=== PATIENT | female | born 1955 | race Caucasian/White ===

== ENCOUNTER 2021-08-13 09:33 | Outpatient (CLI) | payer MEDICARE | END 2021-08-13 09:34 | disposition home or self-care (01) | LOC: BICMAMMO 09:33 | PROVIDERS: ATTEND Internal Medicine | DX: M81.0 Age-related osteoporosis without current pathological fracture (principal); M85.851 Other specified disorders of bone density and structure, right thigh; M85.852 Other specified disorders of bone density and structure, left thigh | CPT/HCPCS: 77080 ==

== ENCOUNTER 2021-09-18 09:58 | Inpatient (IN) | payer MEDICARE, SELFPAY ==
[2021-09-18] MEDS ORDERED: Ondansetron PF 4 MG/2 ML Vial IVP PRN (12:55)
[2021-09-18] MEDS ORDERED: HumaLOG 300 UNITS/3 ML VIAL SC PRN ×2 (12:55)
[2021-09-18] MEDS ORDERED: Dextrose 50% Abboject 50 ML SYRINGE SLOW IVP PRN (12:55)
[2021-09-18] MEDS ORDERED: Dextrose 5% in Water 1,000 ML IV PRN (12:55)
[2021-09-18] MEDS ORDERED: Nitroglycerin 0.4 MG TAB (25 Tab Bottle) SL PRN (12:59)
[2021-09-18 13:16] VITALS: BMI 31.0
[2021-09-18 13:41] LABS: #Eosinphils 0.2 thou/uL (0.0-0.7); #Lymphocytes 2.7 thou/uL (1.20-3.40); #Monocytes 0.7 thou/uL (0.11-0.59); #Neutrophils 4.6 thou/uL (1.40-6.50); %Basophils 0.6 % (0.0-1.0); %Lymphocytes 33.3 % (21.0-51.0); %Monocytes 8.7 % (0.0-10.0); %Neutrophils 55.4 % (42.0-75.0); Hemoglobin 9.3 g/dL (12.0-16.0); Mean Corpuscular HGB CONC 33.3 g/dL (32.0-36.0); Mean Corpuscular Hemoglobin 28.7 pg (27.0-31.0); Mean Platelet Volume 7.5 fL (7.4-10.4); Platelet Count 323 thou/uL (130-400); RBC Distribution Width 14.9 % (11.5-14.5); Red Blood Cell (RBC) Count 3.24 mill/uL (4.20-5.40); White Blood Cell (WBC) Count 8.2 thou/uL (4.8-10.8)
[2021-09-18 14:02] LABS: Anion Gap 13 mmol/L (10-20); BUN (Urea Nitrogen) 24 mg/dL (9.8-20.1); Calc. Creatinine Clearance 40 mL/min (70-130); Calcium 9.4 mg/dL (7.8-10.44); Carbon Dioxide 26 mmol/L (23-31); Chloride 104 mmol/L (98-107); Glucose 134 mg/dL (80-115); Potassium 4.9 mmol/L (3.5-5.1); Sodium 138 mmol/L (136-145)
[2021-09-18] MEDS: Sodium Chloride 0.9% 1,000 ML IV SCH (15:18)
[2021-09-18] MEDS ORDERED: Communication Order-Pharmacy FS SCH (17:30)
[2021-09-18] MEDS: Lantus 1000 UNITS/10 ML VIAL SC SCH (21:03)
[2021-09-18] MEDS: Aspirin 81 mg Enteric Coated Tablet PO SCH (21:03)
[2021-09-18] MEDS: Gabapentin 400 MG CAP PO SCH (21:03)
[2021-09-18] MEDS: Pramipexole Di-HCl 1 MG TAB PO SCH (21:04)
[2021-09-18] MEDS: Acetaminophen 325 MG TAB PO PRN (21:05)
[2021-09-19] MEDS: Sodium Chloride 0.9% 1,000 ML IV SCH ×3 (00:16→20:20)
[2021-09-19 01:56] LABS: SARS-CoV-2 PCR by NAA Not Detected (NotDetected)
[2021-09-19 05:21] LABS: Anion Gap 14 mmol/L (10-20); BUN (Urea Nitrogen) 22 mg/dL (9.8-20.1); Calc. Creatinine Clearance 39 mL/min (70-130); Calcium 9.8 mg/dL (7.8-10.44); Carbon Dioxide 26 mmol/L (23-31); Chloride 103 mmol/L (98-107); Glucose 143 mg/dL (80-115); Potassium 4.9 mmol/L (3.5-5.1); Sodium 138 mmol/L (136-145)
[2021-09-19] MEDS: Gabapentin 400 MG CAP PO SCH ×2 (06:01→20:17)
[2021-09-19] MEDS: Aripiprazole 10 MG TAB PO SCH (06:01)
[2021-09-19] MEDS: Levothyroxine Sodium 125 MCG TAB PO SCH (06:01)
[2021-09-19] MEDS: Calcitriol 0.25 MCG CAP PO SCH (06:01)
[2021-09-19] MEDS ORDERED: ALPRAZolam 0.5 MG TAB PO SCH (06:15)
[2021-09-19] MEDS ORDERED: Lidocaine 1% (PF) 30 ML VIAL ONE (08:20)
[2021-09-19] MEDS ORDERED: Midazolam HCl 2 mg/2 ml Vial ONE (08:55)
[2021-09-19] MEDS ORDERED: Fentanyl 100 MCG/2 ML VIAL ONE (08:55)
[2021-09-19] MEDS ORDERED: Metoprolol Tartrate 25 MG TAB PO SCH (09:00)
[2021-09-19] MEDS ORDERED: Iopamidol 370 76% 100 ML VIAL ONE (09:18)
[2021-09-19] MEDS: Icosapent Ethyl 1 GM CAPSULE PO SCH ×2 (11:16→17:04)
[2021-09-19] MEDS ORDERED: ALPRAZolam 0.25 MG TAB PO PRN (11:26)
[2021-09-19] MEDS: Acetaminophen 325 MG TAB PO PRN ×3 (11:36→22:32)
[2021-09-19] MEDS: Pramipexole Di-HCl 1 MG TAB PO SCH (20:17)
[2021-09-19] MEDS: Aspirin 81 mg Enteric Coated Tablet PO SCH (20:18)
[2021-09-19] MEDS: Metoprolol Tartrate 25 MG TAB PO SCH (20:18)
[2021-09-19] MEDS: Lantus 1000 UNITS/10 ML VIAL SC SCH (20:54)
[2021-09-19] MEDS ORDERED: Acetaminophen 325 MG TAB PO SCH (22:15)
[2021-09-20] MEDS: Sodium Chloride 0.9% 1,000 ML IV SCH (04:28)
[2021-09-20] MEDS: Acetaminophen 325 MG TAB PO PRN (04:29)
[2021-09-20] MEDS: Levothyroxine Sodium 125 MCG TAB PO SCH (04:30)
[2021-09-20 05:15] LABS: #Eosinphils 0.1 thou/uL (0.0-0.7); #Monocytes 0.4 thou/uL (0.11-0.59); %Basophils 0.4 % (0.0-1.0); %Eosinophils 2.6 % (0.0-10.0); %Lymphocytes 35.5 % (21.0-51.0); %Monocytes 7.8 % (0.0-10.0); %Neutrophils 53.8 % (42.0-75.0); Hemoglobin 8.7 g/dL (12.0-16.0); Mean Corpuscular HGB CONC 32.3 g/dL (32.0-36.0); Mean Corpuscular Volume 86.7 fL (78.0-98.0); Mean Platelet Volume 7.6 fL (7.4-10.4); Platelet Count 290 thou/uL (130-400); Red Blood Cell (RBC) Count 3.11 mill/uL (4.20-5.40); White Blood Cell (WBC) Count 5.5 thou/uL (4.8-10.8)
[2021-09-20 05:32] LABS: Anion Gap 11 mmol/L (10-20); BUN (Urea Nitrogen) 22 mg/dL (9.8-20.1); Calc. Creatinine Clearance 41 mL/min (70-130); Calcium 9.1 mg/dL (7.8-10.44); Carbon Dioxide 24 mmol/L (23-31); Chloride 107 mmol/L (98-107); Glucose 148 mg/dL (80-115); Potassium 4.8 mmol/L (3.5-5.1); Sodium 137 mmol/L (136-145)
[2021-09-20] MEDS: Icosapent Ethyl 1 GM CAPSULE PO SCH (08:30)
[2021-09-20] MEDS: Aripiprazole 10 MG TAB PO SCH (08:31)
[2021-09-20] MEDS: Calcitriol 0.25 MCG CAP PO SCH (08:32)
[2021-09-20] MEDS: Gabapentin 400 MG CAP PO SCH (08:33)
[2021-09-20] MEDS: Metoprolol Tartrate 25 MG TAB PO SCH (08:35)
[2021-09-20] MEDS ORDERED: Amlodipine 5 MG TAB PO SCH (09:00)
[2021-09-20 12:13] VITALS: BP 146/79; TEMP 97.5
== END 2021-09-20 14:08 | disposition home or self-care (01) | DRG 287 ==
LOC: 2SW 10:50 → OBSVTOIN 09-19 18:13 → MERGE 09-19 18:13
PROVIDERS: ADMIT Family Medicine; ATTEND Family Medicine
PROC: 4A023N7 Measurement of Cardiac Sampling and Pressure, Left Heart, Percutaneous Approach (ICD-10-PCS; principal; 2021-09-19)
PROC: B2111ZZ Fluoroscopy of Multiple Coronary Arteries using Low Osmolar Contrast (ICD-10-PCS; 2021-09-19)
DX: I25.110 Atherosclerotic heart disease of native coronary artery with unstable angina pectoris (principal); N18.4 Chronic kidney disease, stage 4 (severe); N25.81 Secondary hyperparathyroidism of renal origin; M19.90 Unspecified osteoarthritis, unspecified site; K21.9 Gastro-esophageal reflux disease without esophagitis; M54.50 Low back pain, unspecified; G89.29 Other chronic pain; E78.5 Hyperlipidemia, unspecified; E11.22 Type 2 diabetes mellitus with diabetic chronic kidney disease; I12.9 Hypertensive chronic kidney disease with stage 1 through stage 4 chronic kidney disease, or unspecified chronic kidney disease; G47.33 Obstructive sleep apnea (adult) (pediatric); F41.9 Anxiety disorder, unspecified; F32.A Depression, unspecified; M10.9 Gout, unspecified; F39 Unspecified mood [affective] disorder; D63.1 Anemia in chronic kidney disease; Z79.899 Other long term (current) drug therapy; Z95.5 Presence of coronary angioplasty implant and graft; Z79.4 Long term (current) use of insulin; Z79.890 Hormone replacement therapy; Z79.82 Long term (current) use of aspirin; Z90.49 Acquired absence of other specified parts of digestive tract
CPT/HCPCS: 36415; 36416; 80048; 85025; 93454; 99152; G0378; G0379; J1815; J2001; J2250; J2405; J3010; J7050; Q9967; U0003; U0005

== ENCOUNTER 2021-09-27 11:54 | Outpatient (CLI) | payer MEDICARE | END 2021-09-27 11:55 | disposition home or self-care (01) | LOC: LABBT 11:54 | PROVIDERS: ATTEND Thoracic Surgery (Cardiothoracic Vascular Surgery) | DX: Z01.812 Encounter for preprocedural laboratory examination (principal); I25.10 Atherosclerotic heart disease of native coronary artery without angina pectoris; Z20.822 Contact with and (suspected) exposure to COVID-19 | CPT/HCPCS: 80048; 85027; 86850; 86900; 86901; U0003; U0005 ==

== ENCOUNTER 2021-09-27 12:15 | Inpatient (IN) | payer MEDICARE ==
[2021-09-27 13:32] LABS: Mean Corpuscular HGB CONC 30.8 g/dL (32.0-36.0); Mean Corpuscular Hemoglobin 26.7 pg (27.0-33.0); Mean Corpuscular Volume 86.9 fl (81.6-98.3); Mean Platelet Volume 10.3 fl (7.4-10.4); Platelet Count 410 10x3/uL (150-450); Red Blood Cell (RBC) Count 3.74 10x6/uL (3.90-5.03); White Blood Cell (WBC) Count 11.2 10x3/uL (3.5-10.5)
[2021-09-27 13:46] LABS: Anion Gap 15 mmol/L (10-20); BUN (Urea Nitrogen) 29 mg/dL (9.8-20.1); Calc. Creatinine Clearance 0 mL/min (70-130); Calcium 9.6 mg/dL (7.8-10.44); Carbon Dioxide 24 mmol/L (23-31); Chloride 106 mmol/L (98-107); Glucose 150 mg/dL (80-115); Potassium 4.6 mmol/L (3.5-5.1); Sodium 140 mmol/L (136-145)
[2021-09-28 14:28] LABS: SARS-CoV-2 PCR by NAA Not Detected (NotDetected)
[2021-10-01 12:55] VITALS: BMI 30.9
[2021-10-02] MEDS ORDERED: ceFAZolin Sodium (SDC) 2 GM/100 ML BAG ONE (06:08)
[2021-10-02] MEDS ORDERED: Albumin 5% 500 ML ONE (06:24)
[2021-10-02] MEDS ORDERED: Heparin 10,000 UNITS/1 ML VIAL 30,000 UNITS in Sodium Chloride 0.9% 1,000 ML FS SCH (06:45)
[2021-10-02] MEDS ORDERED: Midazolam HCl 5 mg/5 ml Vial ONE (07:01)
[2021-10-02] MEDS ORDERED: Fentanyl 250 MCG/5 ML VIAL ONE (07:01)
[2021-10-02] MEDS ORDERED: Dexmedetomidine 200 MCG/2 ML VIAL ONE (07:01)
[2021-10-02] MEDS ORDERED: Midazolam HCl 2 mg/2 ml Vial ONE (07:15)
[2021-10-02] MEDS ORDERED: Ondansetron ODT 4 MG TAB ONE (07:15)
[2021-10-02] MEDS ORDERED: Glycopyrrolate 0.2 MG/ML 5 ML SYRINGE ONE (08:07)
[2021-10-02] MEDS ORDERED: Aminocaproic Acid 5 GM/20 ML VIAL ONE (08:07)
[2021-10-02] MEDS ORDERED: Protamine Sulfate 250 MG/25 ML VIAL ONE (08:07)
[2021-10-02] MEDS ORDERED: Calcium Chloride 1 GM/10 ML Abboject SYRINGE ONE (08:07)
[2021-10-02] MEDS ORDERED: Cardioplegic Soln 1,000 ML BAG ONE (08:07)
[2021-10-02] MEDS ORDERED: Dexamethasone 20 MG/5 ML VIAL ONE (08:07)
[2021-10-02] MEDS ORDERED: Nitroglycerin 50 MG/250 ML BOT ONE (08:07)
[2021-10-02] MEDS ORDERED: PROPOFOL 200 MG/20 ML VIAL ONE (08:07)
[2021-10-02] MEDS ORDERED: Heparin 5,000 UNITS/ML VIAL ONE (08:07)
[2021-10-02] MEDS ORDERED: Magnesium Sulfate 1 GM/2 ML VIAL ONE (08:07)
[2021-10-02] MEDS ORDERED: Potassium Chloride 60 MEQ/30 ML VIAL ONE (08:07)
[2021-10-02] MEDS ORDERED: Vecuronium 10 MG VIAL ONE (08:07)
[2021-10-02] MEDS ORDERED: Sodium Bicarb 50 MEQ/50 ML Abboject 8.4% SYRINGE ONE (08:07)
[2021-10-02] MEDS ORDERED: Lidocaine 2% PF 100 mg/5 ml Syringe ONE (08:07)
[2021-10-02] MEDS ORDERED: Lidocaine 1% PF 5 ML VIAL ONE (08:07)
[2021-10-02] MEDS ORDERED: Papaverine 60 MG/2 ML VIAL ONE (08:07)
[2021-10-02] MEDS ORDERED: Heparin 30,000 units/30 ml VIAL ONE (08:07)
[2021-10-02] MEDS ORDERED: Ondansetron PF 4 MG/2 ML Vial ONE (08:07)
[2021-10-02] MEDS ORDERED: Thrombin 5000 UNITS/5 ML VIAL ONE (08:07)
[2021-10-02] MEDS ORDERED: PHENYLEPHRINE-NS 100 MCG/ML 10 ML SYRINGE ONE (09:18)
[2021-10-02] MEDS ORDERED: Insulin Regular 300 UNITS/3 ML VIAL ONE (09:41)
[2021-10-02] MEDS ORDERED: Bisacodyl 5 MG TAB PO PRN (10:54)
[2021-10-02] MEDS ORDERED: Morphine 2 MG/ML VIAL SLOW IVP PRN (10:54)
[2021-10-02] MEDS ORDERED: Nitroglycerin 50 MG/250 ML BOT 250 ML IVPB PRN (10:54)
[2021-10-02] MEDS ORDERED: Mag-Al 1200 mg/1200 mg/30 ML UDCUP PO PRN (10:54)
[2021-10-02] MEDS ORDERED: Ondansetron PF 4 MG/2 ML Vial IVP PRN (10:54)
[2021-10-02] MEDS ORDERED: DOPamine 400 MG/D5W 250 ML 250 ML IVPB PRN (10:54)
[2021-10-02] MEDS ORDERED: Fentanyl 100 MCG/2 ML VIAL SLOW IVP PRN (10:54)
[2021-10-02] MEDS ORDERED: niCARdipine 25 MG in Sodium Chloride 0.9% 250 ML 250 ML IVPB PRN (10:54)
[2021-10-02] MEDS ORDERED: Guaifenesin DM 100-10/5 ML UDCUP PO PRN (10:54)
[2021-10-02] MEDS ORDERED: Bisacodyl 10 MG SUPP PR PRN (10:54)
[2021-10-02] MEDS ORDERED: Hetastarch 6% 500 ML 500 ML IVPB PRN (10:54)
[2021-10-02] MEDS ORDERED: hydrALAZINE 20 MG/ML VIAL SLOW IVP PRN (10:54)
[2021-10-02] MEDS ORDERED: Post-Op Insulin Drip Protocol IVPB ONE (10:54)
[2021-10-02] MEDS ORDERED: Promethazine HCl 25 MG/ML VIAL IM PRN (10:54)
[2021-10-02] MEDS ORDERED: Norepinephrine 8 MG/0.9% NS 250 ML IVPB PRN (10:54)
[2021-10-02] MEDS ORDERED: Dextrose 50% Abboject 50 ML SYRINGE SLOW IVP PRN (11:30)
[2021-10-02] MEDS ORDERED: HUMULIN R 100 UNITS in Sodium Chloride 0.9% 100 ML IVPB SCH ×2 (11:30→15:30)
[2021-10-02] MEDS ORDERED: Insulin Regular 300 UNITS/3 ML VIAL SC PRN (11:30)
[2021-10-02] MEDS ORDERED: Lantus 1000 UNITS/10 ML VIAL SC PRN (11:30)
[2021-10-02] MEDS ORDERED: Dextrose 5% in Water 1,000 ML IV PRN (11:30)
[2021-10-02 11:37] LABS: Hemoglobin 11.2 g/dL (12.0-16.0); Mean Corpuscular HGB CONC 33.8 g/dL (32.0-36.0); Mean Corpuscular Hemoglobin 29.2 pg (27.0-31.0); Mean Corpuscular Volume 86.6 fL (78.0-98.0); Mean Platelet Volume 7.6 fL (7.4-10.4); Platelet Count 324 thou/uL (130-400); RBC Distribution Width 14.4 % (11.5-14.5); Red Blood Cell (RBC) Count 3.83 mill/uL (4.20-5.40); White Blood Cell (WBC) Count 20.5 thou/uL (4.8-10.8)
[2021-10-02 11:47] LABS: INR-International Normal Ratio 1.3
[2021-10-02 11:48] LABS: PTT 41.6 sec (22.9-36.1)
[2021-10-02] MEDS: Lactated Ringer's 1,000 ML IV SCH ×2 (11:56→23:17)
[2021-10-02 11:57] LABS: Anion Gap 13 mmol/L (10-20); BUN (Urea Nitrogen) 27 mg/dL (9.8-20.1); Calc. Creatinine Clearance 40 mL/min (70-130); Calcium 9.2 mg/dL (7.8-10.44); Carbon Dioxide 22 mmol/L (23-31); Chloride 109 mmol/L (98-107); Glucose 154 mg/dL (80-115); Potassium 4.8 mmol/L (3.5-5.1); Sodium 139 mmol/L (136-145)
[2021-10-02] MEDS: Fentanyl 100 MCG/2 ML VIAL SLOW IVP PRN ×3 (12:08→21:06)
[2021-10-02 12:39] LABS: Band 21 % (5-11); Lymphocytes 10 % (21-51); MDiff Complete? YES; Neutrophil 59 % (42-75)
[2021-10-02 12:40] LABS: Monocytes 10 % (0-10); Platelet Morphology Comment Appears Adequate; Polychromasia SLIGHT = 2-3 cells (100X) (0-2/hpf)
[2021-10-02 14:16] LABS: Glucose 233 mg/dL (80-115)
[2021-10-02] MEDS: HYDROcodone/Acetaminophen 5/325 mg Tablet PO PRN ×3 (14:35→23:14)
[2021-10-02] MEDS: ceFAZolin Sodium/D5W 2 GM in Premix Bag 1 BAG IVPB SCH ×2 (14:38→23:01)
[2021-10-02 16:42] LABS: Hemoglobin 10.8 g/dL (12.0-16.0)
[2021-10-02 16:59] LABS: Potassium 4.9 mmol/L (3.5-5.1)
[2021-10-02 18:26] LABS: Glucose 188 mg/dL (80-115)
[2021-10-02] MEDS: Atorvastatin Calcium 20 MG TAB PO SCH (20:08)
[2021-10-02] MEDS: Gabapentin 400 MG CAP PO SCH (20:08)
[2021-10-02] MEDS ORDERED: Famotidine/PF 20 mg/2ml Vial SLOW IVP SCH (21:00)
[2021-10-02] MEDS: Acetaminophen 325 MG TAB PO PRN (23:14)
[2021-10-03] MEDS: Fentanyl 100 MCG/2 ML VIAL SLOW IVP PRN ×5 (01:28→23:17)
[2021-10-03 04:34] LABS: #Lymphocytes 2.2 thou/uL (1.20-3.40); #Monocytes 1.2 thou/uL (0.11-0.59); #Neutrophils 9.7 thou/uL (1.40-6.50); %Basophils 0.1 % (0.0-1.0); %Eosinophils 0.2 % (0.0-10.0); %Lymphocytes 16.5 % (21.0-51.0); %Monocytes 9.1 % (0.0-10.0); Hemoglobin 9.9 g/dL (12.0-16.0); Mean Corpuscular HGB CONC 32.6 g/dL (32.0-36.0); Mean Corpuscular Hemoglobin 28.6 pg (27.0-31.0); Mean Corpuscular Volume 87.7 fL (78.0-98.0); Mean Platelet Volume 7.5 fL (7.4-10.4); Platelet Count 334 thou/uL (130-400); RBC Distribution Width 14.7 % (11.5-14.5); Red Blood Cell (RBC) Count 3.45 mill/uL (4.20-5.40); White Blood Cell (WBC) Count 13.1 thou/uL (4.8-10.8)
[2021-10-03 04:58] LABS: Anion Gap 12 mmol/L (10-20); BUN (Urea Nitrogen) 26 mg/dL (9.8-20.1); Calc. Creatinine Clearance 42 mL/min (70-130); Calcium 9.2 mg/dL (7.8-10.44); Carbon Dioxide 23 mmol/L (23-31); Chloride 106 mmol/L (98-107); Glucose 125 mg/dL (80-115); Potassium 4.6 mmol/L (3.5-5.1); Sodium 136 mmol/L (136-145)
[2021-10-03] MEDS: Levothyroxine Sodium 125 MCG TAB PO SCH (05:17)
[2021-10-03] MEDS: ceFAZolin Sodium/D5W 2 GM in Premix Bag 1 BAG IVPB SCH (05:17)
[2021-10-03] MEDS: Acetaminophen 325 MG TAB PO PRN (05:29)
[2021-10-03] MEDS: HYDROcodone/Acetaminophen 5/325 mg Tablet PO PRN ×4 (05:30→21:48)
[2021-10-03] MEDS ORDERED: Lactated Ringer's 1,000 ML IV SCH (06:15)
[2021-10-03] MEDS: Gabapentin 400 MG CAP PO SCH ×2 (08:08→21:51)
[2021-10-03] MEDS: Aspirin Chewable 81 MG TAB PO SCH (08:08)
[2021-10-03] MEDS: Polyethylene Glycol 3350 17 GM Packet PO SCH (08:09)
[2021-10-03] MEDS ORDERED: Lantus 1000 UNITS/10 ML VIAL SC SCH (09:00)
[2021-10-03] MEDS ORDERED: diphenhydrAMINE 25 MG CAP PO PRN (18:35)
[2021-10-03] MEDS ORDERED: Zolpidem Tartrate 5 MG TAB PO PRN (18:35)
[2021-10-03] MEDS ORDERED: Nitroglycerin 0.4 MG TAB (25 Tab Bottle) SL PRN (18:35)
[2021-10-03] MEDS ORDERED: Mineral Oil ENEMA PR PRN (18:35)
[2021-10-03] MEDS ORDERED: EPINEPHrine 1 MG/10 ML Abboject SYRINGE ONE (19:21)
[2021-10-03] MEDS ORDERED: Famotidine 20 MG TAB PO SCH (21:00)
[2021-10-03] MEDS: Atorvastatin Calcium 20 MG TAB PO SCH (21:50)
[2021-10-03] MEDS: Aripiprazole 10 MG TAB PO SCH (21:50)
[2021-10-03] MEDS: Pramipexole Di-HCl 0.25 MG TAB PO SCH (21:50)
[2021-10-03] MEDS: Pramipexole Di-HCl 1 MG TAB PO SCH (21:52)
[2021-10-04] MEDS: HYDROcodone/Acetaminophen 5/325 mg Tablet PO PRN ×5 (02:00→23:42)
[2021-10-04 04:43] LABS: #Eosinphils 0.1 thou/uL (0.0-0.7); #Lymphocytes 1.6 thou/uL (1.20-3.40); #Monocytes 0.8 thou/uL (0.11-0.59); #Neutrophils 4.8 thou/uL (1.40-6.50); %Basophils 0.2 % (0.0-1.0); %Lymphocytes 22.2 % (21.0-51.0); %Monocytes 10.7 % (0.0-10.0); Hemoglobin 8.5 g/dL (12.0-16.0); Mean Corpuscular HGB CONC 32.4 g/dL (32.0-36.0); Mean Corpuscular Hemoglobin 28.3 pg (27.0-31.0); Mean Corpuscular Volume 87.3 fL (78.0-98.0); Mean Platelet Volume 8.1 fL (7.4-10.4); Platelet Count 203 thou/uL (130-400); RBC Distribution Width 14.6 % (11.5-14.5); Red Blood Cell (RBC) Count 2.99 mill/uL (4.20-5.40); White Blood Cell (WBC) Count 7.2 thou/uL (4.8-10.8)
[2021-10-04 04:55] LABS: Anion Gap 9 mmol/L (10-20); BUN (Urea Nitrogen) 21 mg/dL (9.8-20.1); Calc. Creatinine Clearance 49 mL/min (70-130); Carbon Dioxide 26 mmol/L (23-31); Chloride 106 mmol/L (98-107); Potassium 4.4 mmol/L (3.5-5.1); Sodium 137 mmol/L (136-145)
[2021-10-04 04:56] LABS: Calcium 8.7 mg/dL (7.8-10.44); Glucose 149 mg/dL (80-115)
[2021-10-04] MEDS: Levothyroxine Sodium 125 MCG TAB PO SCH (05:32)
[2021-10-04] MEDS ORDERED: Digoxin 0.5 MG/2 ML AMP SLOW IVP SCH (06:15)
[2021-10-04] MEDS: Aspirin Chewable 81 MG TAB PO SCH (09:52)
[2021-10-04] MEDS: Metoprolol Tartrate 25 MG TAB PO SCH ×2 (09:53→20:53)
[2021-10-04] MEDS: Gabapentin 400 MG CAP PO SCH ×2 (09:53→20:53)
[2021-10-04] MEDS: Polyethylene Glycol 3350 17 GM Packet PO SCH (09:54)
[2021-10-04] MEDS: Famotidine 20 MG TAB PO SCH (09:54)
[2021-10-04] MEDS ORDERED: Amiodarone 150 MG in Dextrose 5% in Water 100 ML IVPB SCH (11:15)
[2021-10-04] MEDS: Amiodarone 450 MG in Dextrose 5% in Water 250 ML IVPB SCH ×2 (12:03→22:00)
[2021-10-04] MEDS: Alogliptin 25 MG TAB PO SCH (12:33)
[2021-10-04] MEDS ORDERED: Sodium Chloride 0.9% 500 ML IV SCH (12:45)
[2021-10-04] MEDS: Pramipexole Di-HCl 0.25 MG TAB PO SCH (20:53)
[2021-10-04] MEDS: Aripiprazole 10 MG TAB PO SCH (20:53)
[2021-10-04] MEDS: Atorvastatin Calcium 20 MG TAB PO SCH (20:53)
[2021-10-04] MEDS: Pramipexole Di-HCl 1 MG TAB PO SCH (20:54)
[2021-10-05] MEDS: Levothyroxine Sodium 125 MCG TAB PO SCH (05:27)
[2021-10-05] MEDS: HYDROcodone/Acetaminophen 5/325 mg Tablet PO PRN ×3 (05:27→19:35)
[2021-10-05] MEDS: Gabapentin 400 MG CAP PO SCH ×2 (09:34→19:39)
[2021-10-05] MEDS: Aspirin Chewable 81 MG TAB PO SCH (09:34)
[2021-10-05] MEDS: Metoprolol Tartrate 25 MG TAB PO SCH ×2 (09:34→19:40)
[2021-10-05] MEDS: Famotidine 20 MG TAB PO SCH (09:34)
[2021-10-05] MEDS: Polyethylene Glycol 3350 17 GM Packet PO SCH (09:35)
[2021-10-05] MEDS: Alogliptin 25 MG TAB PO SCH (10:47)
[2021-10-05] MEDS: Amiodarone 450 MG in Dextrose 5% in Water 250 ML IVPB SCH (12:52)
[2021-10-05] MEDS ORDERED: Dextrose 5% in Water 1,000 ML IV PRN (14:30)
[2021-10-05] MEDS ORDERED: Dextrose 50% Abboject 50 ML SYRINGE IVP PRN (14:30)
[2021-10-05] MEDS ORDERED: Amiodarone 450 MG in Dextrose 5% in Water 250 ML IVPB SCH (16:15)
[2021-10-05] MEDS: Pramipexole Di-HCl 0.25 MG TAB PO SCH (19:35)
[2021-10-05] MEDS: Aripiprazole 10 MG TAB PO SCH (19:39)
[2021-10-05] MEDS: Atorvastatin Calcium 20 MG TAB PO SCH (19:39)
[2021-10-05] MEDS: Pramipexole Di-HCl 1 MG TAB PO SCH (19:40)
[2021-10-05] MEDS: Amiodarone 200 MG TAB PO SCH (19:40)
[2021-10-06] MEDS: HYDROcodone/Acetaminophen 5/325 mg Tablet PO PRN ×3 (03:52→20:32)
[2021-10-06] MEDS: Levothyroxine Sodium 125 MCG TAB PO SCH (05:56)
[2021-10-06] MEDS: HumaLOG 300 UNITS/3 ML VIAL SC PRN ×2 (06:05→11:28)
[2021-10-06] MEDS: Aspirin Chewable 81 MG TAB PO SCH (10:25)
[2021-10-06] MEDS: Famotidine 20 MG TAB PO SCH (10:25)
[2021-10-06] MEDS: Metoprolol Tartrate 25 MG TAB PO SCH ×2 (10:25→20:32)
[2021-10-06] MEDS: Gabapentin 400 MG CAP PO SCH ×2 (10:26→20:31)
[2021-10-06] MEDS: Polyethylene Glycol 3350 17 GM Packet PO SCH (10:26)
[2021-10-06] MEDS: Amiodarone 200 MG TAB PO SCH ×2 (10:26→20:31)
[2021-10-06] MEDS: Alogliptin 25 MG TAB PO SCH (10:27)
[2021-10-06] MEDS ORDERED: ALPRAZolam 0.25 MG TAB PO PRN (14:33)
[2021-10-06] MEDS: Acetaminophen 325 MG TAB PO PRN (15:05)
[2021-10-06] MEDS: Pramipexole Di-HCl 1 MG TAB PO SCH (20:31)
[2021-10-06] MEDS: Atorvastatin Calcium 20 MG TAB PO SCH (20:31)
[2021-10-06] MEDS: Pramipexole Di-HCl 0.25 MG TAB PO SCH (20:31)
[2021-10-06] MEDS: Aripiprazole 10 MG TAB PO SCH (23:03)
[2021-10-07] MEDS: Levothyroxine Sodium 125 MCG TAB PO SCH (06:39)
[2021-10-07] MEDS: Metoprolol Tartrate 25 MG TAB PO SCH ×2 (09:51→21:41)
[2021-10-07] MEDS: HYDROcodone/Acetaminophen 5/325 mg Tablet PO PRN ×3 (09:51→21:46)
[2021-10-07] MEDS: Famotidine 20 MG TAB PO SCH (09:51)
[2021-10-07] MEDS: Aspirin Chewable 81 MG TAB PO SCH (09:51)
[2021-10-07] MEDS: Amiodarone 200 MG TAB PO SCH ×2 (09:53→21:40)
[2021-10-07] MEDS: Gabapentin 400 MG CAP PO SCH ×2 (09:53→21:41)
[2021-10-07] MEDS: Alogliptin 25 MG TAB PO SCH (09:54)
[2021-10-07] MEDS: Polyethylene Glycol 3350 17 GM Packet PO SCH (09:54)
[2021-10-07] MEDS: HumaLOG 300 UNITS/3 ML VIAL SC PRN (12:39)
[2021-10-07 16:08] LABS: #Eosinphils 0.2 thou/uL (0.0-0.7); #Monocytes 0.7 thou/uL (0.11-0.59); #Neutrophils 5.9 thou/uL (1.40-6.50); %Basophils 0.2 % (0.0-1.0); %Eosinophils 2.1 % (0.0-10.0); %Lymphocytes 22.9 % (21.0-51.0); %Monocytes 8.3 % (0.0-10.0); %Neutrophils 66.6 % (42.0-75.0); Hemoglobin 9.4 g/dL (12.0-16.0); Mean Corpuscular HGB CONC 32.5 g/dL (32.0-36.0); Mean Corpuscular Hemoglobin 28.7 pg (27.0-31.0); Mean Corpuscular Volume 88.3 fL (78.0-98.0); Mean Platelet Volume 7.6 fL (7.4-10.4); Platelet Count 324 thou/uL (130-400); RBC Distribution Width 15.2 % (11.5-14.5); Red Blood Cell (RBC) Count 3.29 mill/uL (4.20-5.40); White Blood Cell (WBC) Count 8.8 thou/uL (4.8-10.8)
[2021-10-07 16:09] LABS: Anion Gap 12 mmol/L (10-20); BUN (Urea Nitrogen) 25 mg/dL (9.8-20.1); Calc. Creatinine Clearance 47 mL/min (70-130); Calcium 9.3 mg/dL (7.8-10.44); Carbon Dioxide 27 mmol/L (23-31); Chloride 102 mmol/L (98-107); Glucose 169 mg/dL (80-115); Potassium 4.1 mmol/L (3.5-5.1); Sodium 137 mmol/L (136-145)
[2021-10-07] MEDS: Pramipexole Di-HCl 0.25 MG TAB PO SCH (21:40)
[2021-10-07] MEDS: Pramipexole Di-HCl 1 MG TAB PO SCH (21:42)
[2021-10-07] MEDS: Atorvastatin Calcium 20 MG TAB PO SCH (21:42)
[2021-10-07] MEDS: Aripiprazole 10 MG TAB PO SCH (21:42)
[2021-10-08] MEDS: Levothyroxine Sodium 125 MCG TAB PO SCH (05:05)
[2021-10-08] MEDS ORDERED: Amiodarone 200 MG TAB PO SCH ×2 (09:00)
[2021-10-08] MEDS: Famotidine 20 MG TAB PO SCH (09:53)
[2021-10-08] MEDS: Aspirin Chewable 81 MG TAB PO SCH (09:55)
[2021-10-08] MEDS: Metoprolol Tartrate 25 MG TAB PO SCH (09:55)
[2021-10-08] MEDS: Gabapentin 400 MG CAP PO SCH (09:56)
[2021-10-08] MEDS: Polyethylene Glycol 3350 17 GM Packet PO SCH (09:59)
[2021-10-08] MEDS: HYDROcodone/Acetaminophen 5/325 mg Tablet PO PRN (10:03)
[2021-10-08] MEDS: HumaLOG 300 UNITS/3 ML VIAL SC PRN (11:38)
[2021-10-08 12:46] VITALS: TEMP 97.7
[2021-10-08] MEDS: Alogliptin 25 MG TAB PO SCH (14:20)
[2021-10-08 15:39] VITALS: BP 120/65
== END 2021-10-08 15:05 | disposition swing bed (61) | DRG 236 ==
LOC: SURG A 10-02 05:32 → SDC 10-02 05:32 → CCU 10-02 11:21 → EDSTATUS 10-02 12:15 → 2NO 10-04 18:25
PROVIDERS: ADMIT Thoracic Surgery (Cardiothoracic Vascular Surgery); ATTEND Thoracic Surgery (Cardiothoracic Vascular Surgery)
PROC: 021209W Bypass Coronary Artery, Three Arteries from Aorta with Autologous Venous Tissue, Open Approach (ICD-10-PCS; principal; 2021-10-02)
PROC: 02100Z9 Bypass Coronary Artery, One Artery from Left Internal Mammary, Open Approach (ICD-10-PCS; 2021-10-02)
PROC: 06BQ0ZZ Excision of Left Saphenous Vein, Open Approach (ICD-10-PCS; 2021-10-02)
PROC: 5A1221Z Performance of Cardiac Output, Continuous (ICD-10-PCS; 2021-10-02)
PROC: 3E033XZ Introduction of Vasopressor into Peripheral Vein, Percutaneous Approach (ICD-10-PCS; 2021-10-02)
DX: I25.10 Atherosclerotic heart disease of native coronary artery without angina pectoris (principal); Z20.822 Contact with and (suspected) exposure to COVID-19; E78.5 Hyperlipidemia, unspecified; E21.3 Hyperparathyroidism, unspecified; F32.A Depression, unspecified; G62.9 Polyneuropathy, unspecified; E11.22 Type 2 diabetes mellitus with diabetic chronic kidney disease; I12.9 Hypertensive chronic kidney disease with stage 1 through stage 4 chronic kidney disease, or unspecified chronic kidney disease; N18.9 Chronic kidney disease, unspecified; I48.0 Paroxysmal atrial fibrillation; I49.1 Atrial premature depolarization; Z95.5 Presence of coronary angioplasty implant and graft; Z90.49 Acquired absence of other specified parts of digestive tract; Z90.89 Acquired absence of other organs; Z82.49 Family history of ischemic heart disease and other diseases of the circulatory system; Z88.8 Allergy status to other drugs, medicaments and biological substances
CPT/HCPCS: 36415; 36416; 36430; 71045; 80048; 85025; 85027; 85610; 85730; 86850; 86900; 86901; 93005; 93010; C1776; J0282; J0690; J1100; J1160; J1642; J1644; J1815; J2001; J2250; J2405; J2440; J2704; J2720; J3010; J3370; J3475; J3480; J7050; J7070; J7120; P9016; P9045; Q0162; S0017; S0028; U0003; U0005

== ENCOUNTER 2022-07-11 08:12 | Outpatient (CLI) | payer MEDICARE | END 2022-07-11 08:13 | disposition home or self-care (01) | LOC: BICMAMMO 08:12 | PROVIDERS: ATTEND Internal Medicine | DX: Z12.31 Encounter for screening mammogram for malignant neoplasm of breast (principal); Z91.89 Other specified personal risk factors, not elsewhere classified | CPT/HCPCS: 77063; 77067 ==

== ENCOUNTER 2022-10-07 11:32 | Outpatient (CLI) | payer MEDICARE ==
[2022-10-07 12:16] LABS: Mean Corpuscular HGB CONC 34.3 g/dL (32.0-36.0); Mean Corpuscular Hemoglobin 30.9 pg (27.0-33.0); Mean Corpuscular Volume 90.2 fl (81.6-98.3); Mean Platelet Volume 9.6 fl (7.4-10.4); Platelet Count 302 10x3/uL (150-450); RBC Distribution Width 13.6 % (11.5-14.5); Red Blood Cell (RBC) Count 3.56 10x6/uL (3.90-5.03); White Blood Cell (WBC) Count 7.6 10x3/uL (3.5-10.5)
[2022-10-07 12:31] LABS: Anion Gap 14 mmol/L (10-20); BUN (Urea Nitrogen) 35 mg/dL (9.8-20.1); Calc. Creatinine Clearance 0 mL/min (70-130); Calcium 9.4 mg/dL (7.8-10.44); Carbon Dioxide 23 mmol/L (23-31); Chloride 107 mmol/L (98-107); Estimated GFR 22; Glucose 111 mg/dL (80-115); Sodium 139 mmol/L (136-145)
== END 2022-10-07 11:33 | disposition home or self-care (01) ==
LOC: LABBT 11:32
PROVIDERS: ATTEND Neurological Surgery
DX: Z01.812 Encounter for preprocedural laboratory examination (principal); M47.12 Other spondylosis with myelopathy, cervical region
CPT/HCPCS: 80048; 85027

== ENCOUNTER 2022-11-05 09:01 | Outpatient (CLI) | payer MEDICARE | END 2022-11-05 09:02 | disposition home or self-care (01) | LOC: TBSIIMAG 09:01 | PROVIDERS: ATTEND Neurological Surgery | DX: M47.12 Other spondylosis with myelopathy, cervical region (principal); Z98.890 Other specified postprocedural states | CPT/HCPCS: 72040 ==

== ENCOUNTER 2022-12-19 08:36 | Outpatient (CLI) | payer OTHER | END 2022-12-19 08:37 | disposition home or self-care (01) | LOC: BICRAD 08:36 | PROVIDERS: ATTEND Neurological Surgery | DX: M48.02 Spinal stenosis, cervical region (principal); Z98.1 Arthrodesis status | CPT/HCPCS: 72040 ==

== ENCOUNTER 2023-02-16 08:38 | Outpatient (CLI) | payer MEDICARE ==
[2023-02-16 09:49] LABS: Hemoglobin 10.8 g/dL (12.0-15.5); Mean Corpuscular HGB CONC 32.2 g/dL (32.0-36.0); Mean Corpuscular Volume 90.1 fl (81.6-98.3); Mean Platelet Volume 9.8 fl (7.4-10.4); Platelet Count 310 10x3/uL (150-450); RBC Distribution Width 14.7 % (11.5-14.5); Red Blood Cell (RBC) Count 3.72 10x6/uL (3.90-5.03); White Blood Cell (WBC) Count 8.1 10x3/uL (3.5-10.5)
[2023-02-16 10:16] LABS: Anion Gap 15 mmol/L (10-20); BUN (Urea Nitrogen) 43 mg/dL (9.8-20.1); Calc. Creatinine Clearance 0 mL/min (70-130); Calcium 9.9 mg/dL (7.8-10.44); Carbon Dioxide 23 mmol/L (23-31); Chloride 105 mmol/L (98-107); Estimated GFR 24; Glucose 133 mg/dL (80-115); Potassium 4.9 mmol/L (3.5-5.1); Sodium 138 mmol/L (136-145)
== END 2023-02-16 08:39 | disposition home or self-care (01) ==
LOC: LABBT 08:38
PROVIDERS: ATTEND Neurological Surgery
DX: Z01.812 Encounter for preprocedural laboratory examination (principal); M54.16 Radiculopathy, lumbar region
CPT/HCPCS: 80048; 85027; 93005; 93010

== ENCOUNTER 2023-02-23 07:03 | Inpatient (IN) | payer MEDICARE ==
[2023-02-18 12:24] VITALS: BMI 29.8
[2023-02-23] MEDS ORDERED: Vancomycin 1 GM VIAL ONE (08:53)
[2023-02-23] MEDS ORDERED: CEFAZOLIN 2 GM VIAL ONE (09:03)
[2023-02-23] MEDS ORDERED: Sodium Chloride 0.9% 100 ML ONE (09:03)
[2023-02-23] MEDS ORDERED: fentaNYL PF 100 MCG/2 ML SYRINGE ONE (09:08)
[2023-02-23] MEDS ORDERED: HYDROmorphone 0.5 MG/0.5 ML SYRINGE ONE ×2 (09:08→11:36)
[2023-02-23] MEDS ORDERED: GLYCOPYRROLATE/PF 0.2 MG/ML VIAL ONE (09:15)
[2023-02-23] MEDS ORDERED: Ondansetron PF 4 MG/2 ML Vial ONE (09:15)
[2023-02-23] MEDS ORDERED: NEOSTIGMINE 3 MG/3 ML SYR 3 MG/3 ML SYRINGE ONE (09:15)
[2023-02-23] MEDS ORDERED: Rocuronium Bromide 10 MG/ML (10ML VIAL) ONE (09:15)
[2023-02-23] MEDS ORDERED: Esmolol 100 MG/10 ML VIAL ONE (09:15)
[2023-02-23] MEDS ORDERED: PROPOFOL 200 MG/20 ML VIAL ONE (09:15)
[2023-02-23] MEDS ORDERED: Lidocaine 1% PF 5 ML VIAL ONE (09:15)
[2023-02-23] MEDS ORDERED: Ondansetron HCl/PF 4 MG/2 ML Vial IVP PRN (10:33)
[2023-02-23] MEDS ORDERED: HYDROmorphone 2 MG/ML VIAL SLOW IVP PRN (10:33)
[2023-02-23] MEDS ORDERED: Promethazine HCl 25 MG/ML VIAL IM PRN ×2 (10:33→10:50)
[2023-02-23] MEDS ORDERED: PACU-Morphine 4MG/ML VIAL SLOW IVP PRN (10:33)
[2023-02-23] MEDS ORDERED: Promethazine 25 MG TAB PO PRN (10:50)
[2023-02-23] MEDS ORDERED: diphenhydrAMINE 25 MG CAP PO PRN (10:50)
[2023-02-23] MEDS ORDERED: Milk Of Magnesia 30 ML UDCUP PO PRN (10:50)
[2023-02-23] MEDS ORDERED: Mag-Al 1200 mg/1200 mg/30 ML UDCUP PO PRN (10:50)
[2023-02-23] MEDS ORDERED: traMADol HCl 50 MG TAB PO PRN (10:50)
[2023-02-23] MEDS ORDERED: Dextrose 5% in Water 1,000 ML IV PRN (10:52)
[2023-02-23] MEDS ORDERED: Dextrose 50% Abboject 50 ML SYRINGE SLOW IVP PRN (10:52)
[2023-02-23] MEDS ORDERED: HumaLOG 300 UNITS/3 ML VIAL SC PRN (10:52)
[2023-02-23] MEDS ORDERED: fentaNYL 50 mcg/mL 1 mL Vial ONE ×2 (11:09→11:19)
[2023-02-23] MEDS: Acetaminophen/Codeine 30-300mg Tablet PO PRN ×2 (13:02→20:59)
[2023-02-23] MEDS: Cyclobenzaprine 10 MG TAB PO PRN ×2 (13:02→21:02)
[2023-02-23] MEDS: Morphine 2 MG/ML VIAL SLOW IVP PRN ×2 (13:56→18:49)
[2023-02-23] MEDS: Sodium Chloride 0.9% 1,000 ML IV SCH (16:11)
[2023-02-23] MEDS ORDERED: Diazepam 10 MG/2 ML SYRINGE IVP SCH (16:45)
[2023-02-23] MEDS: CEFAZOLIN 2 GM in Sodium Chloride 0.9% 100 ML IVPB SCH (17:12)
[2023-02-23] MEDS: Icosapent Ethyl 1 GM CAPSULE PO SCH ×2 (17:12→18:33)
[2023-02-23] MEDS: Sertraline 100 MG TAB PO SCH (21:01)
[2023-02-23] MEDS: Metoprolol Tartrate 25 MG TAB PO SCH (21:02)
[2023-02-23] MEDS: Gabapentin 400 MG CAP PO SCH (21:03)
[2023-02-23] MEDS: Insulin Glargine 30 UNITS/0.3 ML VIAL SC SCH (21:04)
[2023-02-23] MEDS: Pramipexole Di-HCl 1 MG TAB PO SCH (21:28)
[2023-02-24] MEDS: Morphine 2 MG/ML VIAL SLOW IVP PRN ×3 (00:07→18:36)
[2023-02-24] MEDS: Sodium Chloride 0.9% 1,000 ML IV SCH ×3 (01:07→18:36)
[2023-02-24] MEDS: CEFAZOLIN 2 GM in Sodium Chloride 0.9% 100 ML IVPB SCH ×3 (01:09→17:09)
[2023-02-24] MEDS: Acetaminophen/Codeine 30-300mg Tablet PO PRN ×4 (01:49→22:36)
[2023-02-24] MEDS: Levothyroxine 150 MCG TAB PO SCH (05:31)
[2023-02-24] MEDS ORDERED: Alogliptin 25 MG TAB PO SCH (09:00)
[2023-02-24] MEDS: Icosapent Ethyl 1 GM CAPSULE PO SCH ×2 (10:47→17:10)
[2023-02-24] MEDS: Magnesium Oxide 250 MG TAB PO SCH (10:49)
[2023-02-24] MEDS: Metoprolol Tartrate 25 MG TAB PO SCH ×2 (10:49→22:29)
[2023-02-24] MEDS: Amlodipine 10 MG TAB PO SCH (10:49)
[2023-02-24] MEDS: Allopurinol 100 MG TAB PO SCH (10:49)
[2023-02-24] MEDS: Gabapentin 400 MG CAP PO SCH ×2 (10:49→22:33)
[2023-02-24] MEDS: hydrOXYzine 25 MG TAB PO SCH (11:10)
[2023-02-24] MEDS: Empagliflozin 10 MG TAB PO SCH (11:11)
[2023-02-24] MEDS: Aripiprazole 10 MG TAB PO SCH (12:46)
[2023-02-24] MEDS: Ondansetron PF 4 MG/2 ML Vial IVP PRN ×2 (12:49→18:28)
[2023-02-24 13:04] LABS: Anion Gap 14 mmol/L (10-20); BUN (Urea Nitrogen) 23 mg/dL (9.8-20.1); Calc. Creatinine Clearance 49 mL/min (70-130); Calcium 8.9 mg/dL (7.8-10.44); Carbon Dioxide 20 mmol/L (23-31); Chloride 108 mmol/L (98-107); Estimated GFR 35; Glucose 114 mg/dL (80-115); Potassium 4.2 mmol/L (3.5-5.1); Sodium 138 mmol/L (136-145)
[2023-02-24 15:43] LABS: #Lymphocytes 1.7 thou/uL (1.20-3.40); #Monocytes 0.7 thou/uL (0.11-0.59); #Neutrophils 5.8 thou/uL (1.40-6.50); %Basophils 0.3 % (0.0-1.0); %Eosinophils 0.4 % (0.0-10.0); %Lymphocytes 20.3 % (21.0-51.0); %Monocytes 8.3 % (0.0-10.0); %Neutrophils 70.7 % (42.0-75.0); Hemoglobin 9.2 g/dL (12.0-16.0); Mean Corpuscular Hemoglobin 30.1 pg (27.0-31.0); Mean Corpuscular Volume 91.1 fl (78.0-98.0); Mean Platelet Volume 7.6 fL (7.4-10.4); Platelet Count 204 10x3/uL (130-400); RBC Distribution Width 13.1 % (11.5-14.5); Red Blood Cell (RBC) Count 3.04 mill/uL (4.20-5.40); White Blood Cell (WBC) Count 8.1 10x3/uL (4.8-10.8)
[2023-02-24] MEDS: Cyclobenzaprine 10 MG TAB PO PRN (17:10)
[2023-02-24] MEDS: Insulin Glargine 30 UNITS/0.3 ML VIAL SC SCH (21:19)
[2023-02-24] MEDS: Sertraline 100 MG TAB PO SCH (22:32)
[2023-02-24] MEDS: Pramipexole Di-HCl 1 MG TAB PO SCH (22:33)
[2023-02-25] MEDS: CEFAZOLIN 2 GM in Sodium Chloride 0.9% 100 ML IVPB SCH (01:43)
[2023-02-25] MEDS: Levothyroxine 150 MCG TAB PO SCH (05:34)
[2023-02-25] MEDS: Sodium Chloride 0.9% 1,000 ML IV SCH ×2 (08:51→21:32)
[2023-02-25] MEDS: Allopurinol 100 MG TAB PO SCH (08:51)
[2023-02-25] MEDS: Acetaminophen/Codeine 30-300mg Tablet PO PRN ×3 (08:52→21:25)
[2023-02-25] MEDS: Aripiprazole 10 MG TAB PO SCH (08:54)
[2023-02-25] MEDS: Amlodipine 10 MG TAB PO SCH (08:54)
[2023-02-25] MEDS: Gabapentin 400 MG CAP PO SCH ×2 (08:55→21:25)
[2023-02-25] MEDS: Metoprolol Tartrate 25 MG TAB PO SCH ×2 (08:55→21:23)
[2023-02-25] MEDS: Icosapent Ethyl 1 GM CAPSULE PO SCH ×2 (08:55→16:05)
[2023-02-25] MEDS: Empagliflozin 10 MG TAB PO SCH (08:56)
[2023-02-25] MEDS: Alogliptin 25 MG TAB PO SCH (08:57)
[2023-02-25] MEDS: hydrOXYzine 25 MG TAB PO SCH (08:57)
[2023-02-25] MEDS: Ondansetron PF 4 MG/2 ML Vial IVP PRN (10:55)
[2023-02-25] MEDS: Morphine 2 MG/ML VIAL SLOW IVP PRN (10:58)
[2023-02-25] MEDS: Insulin Glargine 30 UNITS/0.3 ML VIAL SC SCH (21:07)
[2023-02-25] MEDS: Sertraline 100 MG TAB PO SCH (21:24)
[2023-02-25] MEDS: Pramipexole Di-HCl 1 MG TAB PO SCH (21:26)
[2023-02-26] MEDS: Levothyroxine 150 MCG TAB PO SCH (05:14)
[2023-02-26] MEDS: Alogliptin 25 MG TAB PO SCH (09:18)
[2023-02-26] MEDS: Allopurinol 100 MG TAB PO SCH (09:19)
[2023-02-26] MEDS: Gabapentin 400 MG CAP PO SCH ×2 (09:19→20:55)
[2023-02-26] MEDS: Magnesium Oxide 250 MG TAB PO SCH (09:19)
[2023-02-26] MEDS: hydrOXYzine 25 MG TAB PO SCH (09:19)
[2023-02-26] MEDS: Empagliflozin 10 MG TAB PO SCH (09:20)
[2023-02-26] MEDS: Amlodipine 10 MG TAB PO SCH (09:21)
[2023-02-26] MEDS: Metoprolol Tartrate 25 MG TAB PO SCH ×2 (09:21→20:55)
[2023-02-26] MEDS: Icosapent Ethyl 1 GM CAPSULE PO SCH ×2 (09:21→16:44)
[2023-02-26] MEDS: Acetaminophen/Codeine 30-300mg Tablet PO PRN ×2 (10:16→16:44)
[2023-02-26] MEDS: Aripiprazole 10 MG TAB PO SCH (10:17)
[2023-02-26] MEDS: Sodium Chloride 0.9% 1,000 ML IV SCH ×2 (12:56→21:50)
[2023-02-26] MEDS: Insulin Glargine 30 UNITS/0.3 ML VIAL SC SCH (20:50)
[2023-02-26] MEDS: Sertraline 100 MG TAB PO SCH (20:54)
[2023-02-26] MEDS: Pramipexole Di-HCl 1 MG TAB PO SCH (20:56)
[2023-02-26] MEDS: Cyclobenzaprine 10 MG TAB PO PRN (20:56)
[2023-02-27] MEDS: Levothyroxine 150 MCG TAB PO SCH (05:35)
[2023-02-27] MEDS: Acetaminophen/Codeine 30-300mg Tablet PO PRN ×2 (05:38→16:11)
[2023-02-27 08:26] VITALS: BP 109/76; TEMP 98.6
[2023-02-27] MEDS: Allopurinol 100 MG TAB PO SCH (09:19)
[2023-02-27] MEDS: Gabapentin 400 MG CAP PO SCH (09:21)
[2023-02-27] MEDS: Icosapent Ethyl 1 GM CAPSULE PO SCH (09:24)
[2023-02-27] MEDS: hydrOXYzine 25 MG TAB PO SCH (09:25)
[2023-02-27] MEDS: Alogliptin 25 MG TAB PO SCH (09:25)
[2023-02-27] MEDS: Empagliflozin 10 MG TAB PO SCH (09:26)
[2023-02-27] MEDS: Amlodipine 10 MG TAB PO SCH (09:28)
[2023-02-27] MEDS: Metoprolol Tartrate 25 MG TAB PO SCH (09:29)
[2023-02-27] MEDS: Aripiprazole 10 MG TAB PO SCH (09:37)
[2023-02-27] MEDS: Ondansetron PF 4 MG/2 ML Vial IVP PRN ×2 (10:21→16:12)
== END 2023-02-27 17:40 | disposition swing bed (61) | DRG 459 ==
LOC: SDC 07:03 → MSONC 12:24 → OBSVTOIN 02-25 13:57
PROVIDERS: ADMIT Neurological Surgery; ATTEND Internal Medicine
PROC: 0SG1071 Fusion of 2 or more Lumbar Vertebral Joints with Autologous Tissue Substitute, Posterior Approach, Posterior Column, Open Approach (ICD-10-PCS; principal; 2023-02-23)
DX: M48.061 Spinal stenosis, lumbar region without neurogenic claudication (principal); J96.01 Acute respiratory failure with hypoxia; N18.4 Chronic kidney disease, stage 4 (severe); M54.16 Radiculopathy, lumbar region; I25.10 Atherosclerotic heart disease of native coronary artery without angina pectoris; E11.22 Type 2 diabetes mellitus with diabetic chronic kidney disease; M10.9 Gout, unspecified; I12.9 Hypertensive chronic kidney disease with stage 1 through stage 4 chronic kidney disease, or unspecified chronic kidney disease; F32.A Depression, unspecified; F41.9 Anxiety disorder, unspecified; E03.9 Hypothyroidism, unspecified; G47.33 Obstructive sleep apnea (adult) (pediatric); R33.9 Retention of urine, unspecified; I27.20 Pulmonary hypertension, unspecified; Z90.49 Acquired absence of other specified parts of digestive tract; Z90.710 Acquired absence of both cervix and uterus; Z95.5 Presence of coronary angioplasty implant and graft; Z79.899 Other long term (current) drug therapy; Z79.4 Long term (current) use of insulin; Z79.890 Hormone replacement therapy
CPT/HCPCS: 36415; 36416; 71045; 80048; 85025; C1713; C1768; C1776; J1170; J1815; J2272; J2405; J2704; J3010; J3360; J3370; J3490; J7050; Q0169

== ENCOUNTER 2023-03-12 08:58 | Outpatient (CLI) | payer MEDICARE | END 2023-03-12 08:59 | disposition home or self-care (01) | LOC: TBSIIMAG 08:58 | PROVIDERS: ATTEND Neurological Surgery | DX: M54.16 Radiculopathy, lumbar region (principal); Z98.890 Other specified postprocedural states | CPT/HCPCS: 72100 ==

== ENCOUNTER 2023-07-28 14:57 | Outpatient (CLI) | payer MEDICARE | END 2023-07-28 14:58 | disposition home or self-care (01) | LOC: BICRAD 14:57 | PROVIDERS: ATTEND Neurological Surgery | DX: M47.26 Other spondylosis with radiculopathy, lumbar region (principal); M54.2 Cervicalgia; M47.812 Spondylosis without myelopathy or radiculopathy, cervical region; Z98.1 Arthrodesis status | CPT/HCPCS: 72040; 72100 ==

== ENCOUNTER 2024-08-15 08:33 | Outpatient (CLI) | payer MEDICARE | END 2024-08-15 08:34 | disposition home or self-care (01) | LOC: BICMAMMO 08:33 | PROVIDERS: ATTEND Internal Medicine | DX: Z12.31 Encounter for screening mammogram for malignant neoplasm of breast (principal); Z80.3 Family history of malignant neoplasm of breast; Z91.89 Other specified personal risk factors, not elsewhere classified | CPT/HCPCS: 77063; 77067 ==